=== PATIENT | male | born 1950 | race Caucasian/White ===

== ENCOUNTER 2016-10-16 09:37 | Inpatient (IN) | payer OTHER ==
[~2016-10-16] VITALS: Ht 182.9 cm; Wt 138.4 kg
[~2016-10-16 09:37] MED LIST: BUDE3CAP5 PO; CENTTAB9 PO; LISI10TA PO; REMICADE IV; VARE1 PO; VITA10002 PO
[2016-10-17] VITALS (9 sets, daily range): BP systolic 118–129; BP diastolic 58–82; PULSE 84–98; RESP 16–18; TEMP 97.5–98.4; O2SAT 94–99
[2016-10-17] MEDS ORDERED: DULE100A INH (11:23)
[2016-10-17] MEDS ORDERED: [UNRECOGNIZED DRUG - CODE] PO (11:23)
[2016-10-17] MEDS ORDERED: VEDO1INJ IV (11:23)
[2016-10-17] MEDS ORDERED: CARV6.252 PO (11:23)
[2016-10-17] MEDS ORDERED: METF500T PO (11:23)
[2016-10-17] MEDS ORDERED: LISI-515 PO (11:23)
[2016-10-17] MEDS ORDERED: FURO40TA PO (11:23)
[2016-10-17] MEDS ORDERED: VENTAER INH (11:23)
[2016-10-17] MEDS ORDERED: ROSU20 PO (11:23)
[2016-10-17] MEDS ORDERED: FENO160T PO (11:23)
[2016-10-17] MEDS ORDERED: LATA0.002 EACH EYE (11:23)
[2016-10-17] MEDS ORDERED: ASPI1TAB69 PO (11:23)
[2016-10-17] MEDS ORDERED: CHOL5000 PO (11:23)
[2016-10-17] MEDS: MILRINONE 20 MG/NS 100 ML (0.375 mcg/kg/min) IV SCH ×4 (14:10→20:06)
[2016-10-17 14:30] LABS: AUTOMATED NEUTROPHIL # 5.5 TH/MM3 (1.8-7.7); BASOPHIL % 0.3 % (0.0-2.0); EOSINOPHIL # 0.1 TH/MM3 (0-0.4); HEMATOCRIT 44.7 % (39.0-51.0); HEMO FLAGS DIFF FINAL; LYMPH % 21.2 % (9.0-44.0); LYMPHOCYTE # 1.7 TH/MM3 (1.0-4.8); MEAN CELL VOLUME 85.9 FL (80.0-100.0); MEAN CORPUSCULAR HEMOGLOBIN 28.5 PG (27.0-34.0); MEAN CORPUSCULAR HGB CONC 33.2 % (32.0-36.0); MONO % 9.4 % (0.0-8.0); NEUT % 68.1 % (16.0-70.0); PLATELET COUNT 218 TH/MM3 (150-450); RED CELL DISTRIBUTION WIDTH 16.5 % (11.6-17.2); WHITE BLOOD COUNT 8.1 TH/MM3 (4.0-11.0)
[2016-10-17 14:34] LABS: APTT (PATIENT) 29.6 SEC (24.3-30.1); INTERNATIONAL NORMALIZED RATIO 1.2 RATIO
[2016-10-17 15:03] LABS: ALT (GPT) 19 U/L (12-78); ANION GAP 8 MEQ/L (5-15); AST (GOT) 14 U/L (15-37); BICARBONATE 30.5 MEQ/L (21.0-32.0); BLOOD UREA NITROGEN 21 MG/DL (7-18); CHLORIDE 105 MEQ/L (98-107); GLOMERULAR FILTRATION RATE 115 ML/MIN (>89); POTASSIUM 3.9 MEQ/L (3.5-5.1); SODIUM (NA) 143 MEQ/L (136-145)
[2016-10-17 15:05] LABS: ALKALINE PHOSPHATASE 72 U/L (45-117); TOTAL BILIRUBIN ADULT 0.7 MG/DL (0.2-1.0)
[2016-10-17] MEDS ORDERED: MIDAZOLAM HCL 5 MG/ML VIAL (1 ML) ONE (17:47)
[2016-10-17] MEDS ORDERED: FUROSEMIDE 40 MG/4 ML VIAL IV PUSH SCH (20:15)
--- NOTE | 2016-10-17 20:20 | PD.CONS ---
[facility] Service Critical Care Medicine Consult Requested By Dr. Espinoza Reason for Consult hemodynamic optimization Primary Care Physician Norman Sheikh MD History of Present Illness This is a 66-year-old gentleman with a history of ischemic cardiomyopathy, EF 25 %, [place] Heart Association class III heart failure who presents as a direct admit from home for preoperative optimization of heart failure. I spoke with Dr. Espinoza and the patient's had progressive dyspneic symptoms of heart failure for a few weeks. The plan will be to place an AICD, but the patient will need to be medically optimized and not in decompensated heart failure for this procedure. I spoke with the patient, and concerning symptoms, he used to be able to walk to the meat department in the back of the grocery store with out getting dyspneic, but now needs to use a motorized scooter to get around the grocery store. He can only walk maybe 25 feet before getting dyspneic. He wears oxygen at home continuously. He denies having any new chest pain. He can lie flat, but only for a few minutes. I discussed with Dr. Espinoza and his most recent echo at the beginning of this month showed an EF of 25%, normal right ventricular function, mild to moderate mitral regurgitation, mild-to- moderate tricuspid regurgitation, biatrial enlargement. Critical care medicine is consulted to evaluate and manage his hemodynamic optimization. Review of Systems Constitutional: COMPLAINS OF: Weight gain, DENIES: Diaphoretic episodes, Fatigue, Fever, Weight loss, Chills, Dizziness Endocrine: DENIES: Heat/cold intolerance Respiratory: DENIES: Wheezing, Hemoptysis, Sputum production, Shortness of breath Cardiovascular: COMPLAINS OF: Orthopnea, DENIES: Chest pain, Palpitations, Syncope, Dyspnea on Exertion, PND, Lower Extremity Edema Gastrointestinal: DENIES: Abdominal pain, Constipation, Diarrhea, Nausea, Vomiting Genitourinary: DENIES: Urinary frequency, Urinary incontinence Past Family Social History Allergies: Coded Allergies: Aspirin (Verified Allergy, Severe, RASHES , 08/10/08) Remicade (Verified Allergy, Severe, Anaphylaxis, 08/10/08) Past Medical History Hypertension Systolic heart failure Ischemic cardiomyopathy Crohn's disease Past Surgical History Prior stents placed Small bowel resection for Crohn's disease Reported Medications Lasix Carvedilol Lisinopril Active Ordered Medications See MAR Family History Reviewed with the patient and found to be noncontributory to his acute illness Social History Denies tobacco, EtOH, drugs of abuse Physical Exam Vital Signs Vital Signs Date Time Temp Pulse Resp B/P Pulse Ox O2 Delivery O2 Flow Rate FiO2 10/17/16 17:04 98 Nasal Cannula 2.00 10/17/16 15:21 98.4 85 18 129/82 98 10/17/16 15:00 85 10/17/16 14:00 95 Nasal Cannula 2.00 10/17/16 12:00 98.0 84 18 124/58 99 10/17/16 11:00 99 Nasal Cannula 2.00 10/17/16 11:00 84 10/17/16 10:30 97.8 84 18 128/60 99 10/17/16 10:30 99 Nasal Cannula 2.00 Physical Exam GENERAL: Middle-aged male, sitting in bed. HEENT: Pupils equal, round and reactive. Normal cephalic. Atraumatic. Mucous membranes are moist NECK: Obese neck, unable to assess JVD. Trachea midline. CHEST: Equal chest rise. CARDIOVASCULAR: Normal rate, regular rhythm. Sinus by telemetry ABDOMEN: Obese, soft, nontender, nondistended. No guarding. MUSCULOSKELETAL: 2+ peripheral edema. Distal pulses 2+. Chronic nonhealing wound over the right lower extremity, this is without purulent drainage NEUROLOGICAL: RASS 0. GCS 15. CAM -. Follows commands all 4 extremity's. Laboratory Laboratory Tests Test 10/17/16 13:52 White Blood Count 8.1 Red Blood Count 5.20 Hemoglobin 14.8 Hematocrit 44.7 Mean Corpuscular Volume 85.9 Mean Corpuscular Hemoglobin 28.5 Mean Corpuscular Hemoglobin 33.2 Concent Red Cell Distribution Width 16.5 Platelet Count 218 Mean Platelet Volume 8.4 Neutrophils (%) (Auto) 68.1 Lymphocytes (%) (Auto) 21.2 Monocytes (%) (Auto) 9.4 Eosinophils (%) (Auto) 1.0 Basophils (%) (Auto) 0.3 Neutrophils # (Auto) 5.5 Lymphocytes # (Auto) 1.7 Monocytes # (Auto) 0.8 Eosinophils # (Auto) 0.1 Basophils # (Auto) 0.0 CBC Comment DIFF FINAL Differential Comment Prothrombin Time 13.0 Prothromb Time International 1.2 Ratio Activated Partial 29.6 Thromboplast Time Sodium Level 143 Potassium Level 3.9 Chloride Level 105 Carbon Dioxide Level 30.5 Anion Gap 8 Blood Urea Nitrogen 21 Creatinine 0.69 Estimat Glomerular Filtration 115 Rate Random Glucose 102 Calcium Level 8.9 Total Bilirubin 0.7 Aspartate Amino Transf 14 (AST/SGOT) Alanine Aminotransferase 19 (ALT/SGPT) Alkaline Phosphatase 72 Total Protein 7.0 Albumin 3.2 Result Diagram: 10/17/16 1352 10/17/16 1352 Assessment and Plan Assessment and Plan Assessment: This is a 66-year-old male with ischemic cardiomyopathy, EF of 25%, in subacute decompensated systolic heart failure. I agree that he needs medical optimization prior to any elective procedure. Certainly given his progressive [place] Heart Association symptoms, he appears to be trending towards cardiogenic shock. I have spoken with Dr. Espinoza and our plan is to place pulmonary artery catheter and start inotropic therapy with milrinone and aggressive diuresis to medically optimize him prior to elective AICD placement. I have also talked with the patient and consented him for RHC, aggressive diuresis, and medical optimization. 1. Decompensated Left Ventricular Systolic Heart Failure -- milrinone 0.375 mcg/kg/min -- place pulmonary artery catheter -- trend cardiac output/PA/CVP q4h -- lasix 80mg iv q8h -- BMP, Mg q8h and aggressive electrolyte replacement -- goal net -2L/24h. 2. Hypertension -- continue home lisinopril, carvedilol 3. Coronary Artery Disease -- continue home ASA Heart healthy diet SCDs SQH This patient remains critically ill with one or more organ systems which are or may become a threat to life. I have spent in excess of 51 minutes discontinuously in the care and management of this patient. This time is exclusive of procedures, and includes, but is not limited to, evaluation of the patient, review of the medical record, discussions with family, consultants, nursing staff, or respiratory therapy, and documentation in the medical record. Code Status Full Code Discussed Condition With Nestor Duran MD October 17, 2016 20:20
--- NOTE | 2016-10-17 20:22 | PD.PROCEDR ---
Procedure Note Procedure Central Line Procedure Note Right IJ 8.5 Mongolian Cordis introducer sheath Diagnosis: Ischemic cardiomyopathy with decompensated left ventricular systolic heart failure Indications: Need for central pressure monitoring and medical optimization of Decompensated heart failure Consent: Written consent was obtained from the patient Anesthesia: 1% lidocaine locally, Versed 1 mg IV Description of the Procedure: The patient was placed in the supine, mild- Trendelenburg position. The area was prepped and draped sterilely. A 19g needle was inserted under negative pressure aspiration and dark venous blood was obtained. A guidewire was inserted easily without resistance. A small incision was made using a #11 blade. Using a modified Seldinger technique, the dilator and 8.5 Mongolian, 10 cm catheter were advanced over the guidewire without resistance. All ports were aspirated and flushed, and had brisk blood return. The line was secured at the skin using 2-0 silk interrupted sutures. A Biopatch and Transparent sterile dressing were applied. There were no immediate complications noted. There was minimal EBL. The patient tolerated the procedure well. Ultrasound Guidance: Ultrasound guidance was used to identify the right internal jugular vein. The vascular anatomy was normal. The vessel was cannulated under direct, real-time ultrasound visualization. After placement of the guidewire, confirmation of the guidewire in the lumen of the vessel was made using ultrasound visualization, before dilation of the tract. A Chest x-ray has been ordered. I personally performed the procedure. Nestor Poe MD October 17, 2016 20:21
--- NOTE | 2016-10-17 20:24 | PD.PROCEDR ---
Procedure Note Procedure Pulmonary Artery Catheter Procedure Note Right IJ pulmonary artery catheter Diagnosis: Decompensated left ventricular systolic heart failure Indications: Need for medical optimization of decompensated left ventricular systolic heart failure, need for accurate thermodilution cardiac output Consent: Written consent was obtained from the patient Anesthesia: Versed 1 mg IV Description of the Procedure: The patient was placed in the supine, mild-Reverse -Trendelenburg position. The area was prepped and draped sterilely. A 6 Fr pulmonary artery catheter was flushed, and all ports were checked, including PA , CVP, infusion port. The balloon was tested and inflated and deflated easily. Through an existing introducer sheath, the catheter was inserted to a depth of 20 cm and the balloon was inflated without resistance. The PA catheter was advanced under continuous waveform hemodynamic monitoring and appropriate RA, RV , PA, and PCWP waveforms were achieved. The balloon was deflated. The line was secured to the introducer sheath using a sterile cover. There were no immediate complications noted. There was minimal EBL. The patient tolerated the procedure well. PA catheter secured at: 65 cm. Hemodynamic Data: RAP: 17 mmHg RV: 63/8 (27) mmHg PAP: 56/23 (30) mmHg PCWP: 20 mmHg achieved at 67 cm Mixed Venous SvO2: 59 % Cardiac Output: 4.1 L/min Cardiac Index: 1.9 A Chest x-ray has been ordered. I personally performed the procedure. Nestor Poe MD October 17, 2016 20:24
[2016-10-17] MEDS ORDERED: MAGNESIUM SULFATE INJ 2 GM in SODIUM CHLORIDE 0.9% INJ 96 ML IV PRN (20:30)
[2016-10-17] MEDS ORDERED: MAGNESIUM SULFATE INJ 4 GM in SODIUM CHLORIDE 0.9% INJ 92 ML IV PRN (20:30)
[2016-10-17] MEDS ORDERED: POTASSIUM CHLOR 20 MEQ PREMIX 100 ML IV PRN ×2 (20:30)
[2016-10-17] MEDS ORDERED: MAGNESIUM OXIDE 400 MG TAB PO PRN (20:30)
[2016-10-17] MEDS ORDERED: POTASSIUM PHOSPHATE MONOBASIC 500 MG TAB PO/TUBE PRN (20:30)
[2016-10-17] MEDS ORDERED: POTASSIUM PHOSPHATE MONOBASIC 500 MG TAB PO PRN (20:30)
[2016-10-17] MEDS ORDERED: SODIUM PHOSPHATE INJ 30 MMOL in SODIUM CHLOR 0.9% 250 ML INJ 240 ML IV PRN (20:30)
[2016-10-17] MEDS ORDERED: POTASSIUM CHLOR 40 MEQ PREMIX 100 ML IV PRN ×2 (20:30)
--- NOTE | 2016-10-17 20:49 | RADRPT ---
EXAM DATE/TIME: 10/17/2016 20:16 [facility] COMPARISON: No previous studies available for comparison. INDICATIONS : Central line placement. MEDICAL HISTORY : Hypertension. SURGICAL HISTORY : None. ENCOUNTER: Initial ACUITY: 1 day PAIN SCORE: 0/10 LOCATION: Bilateral chest FINDINGS: 2 AP supine portable views of the chest were obtained and demonstrate a right internal jugular [place]-G anz catheter with the tip in the right pulmonary artery. There is no evidence of a pneumothorax on th is supine study. There is abnormal opacity at the left lung base with blunting the costophrenic angle and fluid extending along the lower lateral chest wall. The heart size is at the upper limits of nor mal. There are overlying electrocardiogram leads. CONCLUSION: 1. Right internal jugular [place]-David catheter with no pneumothorax. 2. Abnormal opacity at the left lung base with left effusion. Campbell Brooks MD on October 17, 2016 at 20:46 Board Certified Radiologist. This report was verified electronically.
[2016-10-17] MEDS: FUROSEMIDE 40 MG/4 ML VIAL IV PUSH SCH (23:56)
[2016-10-17] MEDS: BUDESONIDE-FORMOTEROL 160/4.5 MCG INHALER INH SCH (23:57)
[2016-10-17] MEDS: CARVEDILOL 6.25 MG TAB PO SCH (23:57)
[2016-10-17] MEDS: LATANOPROST 0.005% OPHT SOLN 2.5 ML BTL EACH EYE SCH (23:57)
[2016-10-18] VITALS (9 sets, daily range): BP systolic 98–127; BP diastolic 53–76; PULSE 93–108; RESP 16–28; TEMP 97.7–99.1; O2SAT 91–94
[2016-10-18] MEDS: MILRINONE 20 MG/NS 100 ML (0.375 mcg/kg/min) IV SCH ×8 (01:22→20:30)
[2016-10-18 04:53] LABS: BICARBONATE 31.9 MEQ/L (21.0-32.0); MAGNESIUM 1.9 MG/DL (1.5-2.5); POTASSIUM 3.9 MEQ/L (3.5-5.1)
[2016-10-18] MEDS ORDERED: POTASSIUM CHLORIDE 20 MEQ CONTROLLED RELEASE TAB PO ONE (06:30)
[2016-10-18] MEDS: FUROSEMIDE 40 MG/4 ML VIAL IV PUSH SCH ×3 (06:37→21:19)
[2016-10-18] MEDS ORDERED: FUROSEMIDE 40 MG TAB PO SCH (09:00)
[2016-10-18] MEDS: ASPIRIN EC 81 MG TABEC PO SCH (09:00)
[2016-10-18] MEDS: ATORVASTATIN 40 MG TAB PO SCH (09:35)
[2016-10-18] MEDS: metFORMIN HCL 500 MG TAB PO SCH (09:35)
[2016-10-18] MEDS: BUDESONIDE-FORMOTEROL 160/4.5 MCG INHALER INH SCH ×2 (09:35→21:23)
[2016-10-18] MEDS: CHOLECALCIFEROL (VIT D3) 5000 UNIT CAP PO SCH (09:35)
[2016-10-18] MEDS: LISINOPRIL 20 MG TAB PO SCH (09:36)
[2016-10-18] MEDS: CYANOCOBALAMIN 1,000 MCG TAB PO SCH (09:36)
[2016-10-18] MEDS: CARVEDILOL 6.25 MG TAB PO SCH ×2 (09:36→21:22)
[2016-10-18] MEDS: FENOFIBRATE 145 MG TAB PO SCH (09:36)
[2016-10-18] MEDS: ALBUTEROL SULFATE 90 MCG/ACT HFA 18 GM INHALER INH PRN ×2 (11:26→21:22)
[2016-10-18 14:19] LABS: BICARBONATE 33.8 MEQ/L (21.0-32.0); MAGNESIUM 1.8 MG/DL (1.5-2.5); POTASSIUM 3.7 MEQ/L (3.5-5.1)
--- NOTE | 2016-10-18 16:55 | HHI.CCPN ---
Subjective Remarks/Hospital Course Hospital Course: This is a 66-year-old gentleman with a history of ischemic cardiomyopathy, EF 25 %, [place] Heart Association class III heart failure who presents as a direct admit from home for preoperative optimization of heart failure. I spoke with Dr. Espinoza and the patient's had progressive dyspneic symptoms of heart failure for a few weeks. The plan will be to place an AICD, but the patient will need to be medically optimized and not in decompensated heart failure for this procedure. I spoke with the patient, and concerning symptoms, he used to be able to walk to the meat department in the back of the grocery store with out getting dyspneic, but now needs to use a motorized scooter to get around the grocery store. He can only walk maybe 25 feet before getting dyspneic. He wears oxygen at home continuously. He denies having any new chest pain. He can lie flat, but only for a few minutes. I discussed with Dr. Espinoza and his most recent echo at the beginning of this month showed an EF of 25%, normal right ventricular function, mild to moderate mitral regurgitation, mild-to- moderate tricuspid regurgitation, biatrial enlargement. Critical care medicine is consulted to evaluate and manage his hemodynamic optimization. Subjective: 10/18: doing well. >3L uop overnight. denies complaints. RHC numbers today: HR 99 , RAP 7, PAP 49/13 (29), PCWP 21, art 123/76 (91). CO 6.5 LPM, CI 2.5 SVR 1028, SV 66 Objective Vital Signs Date Time Temp Pulse Resp B/P Pulse Ox O2 Delivery O2 Flow Rate FiO2 10/18/16 15:00 96 106/60 10/18/16 15:00 93 Nasal Cannula 3.00 10/18/16 15:00 98.3 28 Intake and Output 10/17/16 10/17/16 10/18/16 08:00 16:00 00:00 Intake Total 100 ml Output Total 350 ml Balance -250 ml Result Diagram: 10/17/16 1352 10/18/16 1335 Objective Remarks GENERAL: Middle-aged male, sitting in bed. HEENT: Pupils equal, round and reactive. Normal cephalic. Atraumatic. Mucous membranes are moist NECK: Obese neck, unable to assess JVD. Trachea midline. Right IJ cordis with PAC, dressing intact. CHEST: Equal chest rise. CARDIOVASCULAR: Normal rate, regular rhythm. Sinus by telemetry ABDOMEN: Obese, soft, nontender, nondistended. No guarding. MUSCULOSKELETAL: 2+ peripheral edema. Distal pulses 2+. Chronic nonhealing wound over the right lower extremity, this is without purulent drainage NEUROLOGICAL: RASS 0. GCS 15. CAM -. Follows commands all 4 extremity's. A/P Assessment and Plan Assessment: This is a 66-year-old male with ischemic cardiomyopathy, EF of 25%, in subacute decompensated systolic heart failure. Improving and diuresing appropriately. will continue with aggressive diuresis and inotropic support. 1. Decompensated Left Ventricular Systolic Heart Failure -- milrinone 0.375 mcg/kg/min -- continue PAC today. -- trend cardiac output/PA/CVP q4h -- lasix 80mg iv q8h -- BMP, Mg q8h and aggressive electrolyte replacement -- goal net -2-3L/24h. 2. Hypertension -- continue home lisinopril, carvedilol 3. Coronary Artery Disease -- continue home ASA Heart healthy diet SCDs [facility] Nestor Poe MD October 18, 2016 16:55
[2016-10-18] MEDS ORDERED: POTASSIUM CHLORIDE 25 MEQ EFFERVESCENT TAB PO ONE (17:00)
[2016-10-18] MEDS: LATANOPROST 0.005% OPHT SOLN 2.5 ML BTL EACH EYE SCH (21:22)
[2016-10-19] VITALS (10 sets, daily range): BP systolic 88–109; BP diastolic 48–65; PULSE 83–96; RESP 16–28; TEMP 97.4–98.3; O2SAT 83–96
[2016-10-19] MEDS: MILRINONE 20 MG/NS 100 ML (0.375 mcg/kg/min) IV SCH ×6 (02:26→14:54)
[2016-10-19 05:38] LABS: BICARBONATE 31.9 MEQ/L (21.0-32.0); MAGNESIUM 1.9 MG/DL (1.5-2.5); POTASSIUM 3.7 MEQ/L (3.5-5.1)
[2016-10-19] MEDS ORDERED: POTASSIUM CHLORIDE 25 MEQ EFFERVESCENT TAB PO ONE ×2 (06:15→20:15)
[2016-10-19] MEDS: FUROSEMIDE 40 MG/4 ML VIAL IV PUSH SCH ×3 (06:24→21:43)
[2016-10-19] MEDS: MAGNESIUM SULFATE 1 GM PREMIX 100 ML IV SCH ×2 (06:25→08:01)
[2016-10-19] MEDS: ASPIRIN EC 81 MG TABEC PO SCH (09:00)
[2016-10-19] MEDS: ATORVASTATIN 40 MG TAB PO SCH (09:25)
[2016-10-19] MEDS: metFORMIN HCL 500 MG TAB PO SCH (09:25)
[2016-10-19] MEDS: CYANOCOBALAMIN 1,000 MCG TAB PO SCH (09:25)
[2016-10-19] MEDS: FENOFIBRATE 145 MG TAB PO SCH (09:25)
[2016-10-19] MEDS: LISINOPRIL 20 MG TAB PO SCH (09:26)
[2016-10-19] MEDS: CHOLECALCIFEROL (VIT D3) 5000 UNIT CAP PO SCH (09:26)
[2016-10-19] MEDS: BUDESONIDE-FORMOTEROL 160/4.5 MCG INHALER INH SCH ×2 (09:26→21:42)
[2016-10-19] MEDS: CARVEDILOL 6.25 MG TAB PO SCH ×2 (09:26→21:43)
[2016-10-19] MEDS: ACETAMINOPHEN 325 MG TAB PO PRN (09:31)
[2016-10-19 13:18] LABS: BICARBONATE 30.1 MEQ/L (21.0-32.0); MAGNESIUM 2.4 MG/DL (1.5-2.5); POTASSIUM 3.8 MEQ/L (3.5-5.1)
--- NOTE | 2016-10-19 13:18 | HHI.CCPN ---
Subjective Remarks/Hospital Course Hospital Course: This is a 66-year-old gentleman with a history of ischemic cardiomyopathy, EF 25 %, [place] Heart Association class III heart failure who presents as a direct admit from home for preoperative optimization of heart failure. I spoke with Dr. Espinoza and the patient's had progressive dyspneic symptoms of heart failure for a few weeks. The plan will be to place an AICD, but the patient will need to be medically optimized and not in decompensated heart failure for this procedure. I spoke with the patient, and concerning symptoms, he used to be able to walk to the meat department in the back of the grocery store with out getting dyspneic, but now needs to use a motorized scooter to get around the grocery store. He can only walk maybe 25 feet before getting dyspneic. He wears oxygen at home continuously. He denies having any new chest pain. He can lie flat, but only for a few minutes. I discussed with Dr. Espinoza and his most recent echo at the beginning of this month showed an EF of 25%, normal right ventricular function, mild to moderate mitral regurgitation, mild-to- moderate tricuspid regurgitation, biatrial enlargement. Critical care medicine is consulted to evaluate and manage his hemodynamic optimization. Subjective: 10/18: doing well. >3L uop overnight. denies complaints. RHC numbers today: HR 99 , RAP 7, PAP 49/13 (29), PCWP 21, art 123/76 (91). CO 6.5 LPM, CI 2.5 SVR 1028, SV 66 10/19: uop > 5L/24h. doing well. o2 down to 3L NC from 5L. RHC numbers today: HR 87, RAP 7, PAP 36/15 (25), PCWP 16, art 88/54 (65). CO 6.2 LPM, CI 2.4, SVR 744 , SV 72 mL Objective Vital Signs Date Time Temp Pulse Resp B/P Pulse Ox O2 Delivery O2 Flow Rate FiO2 10/19/16 12:20 86 88/54 10/19/16 11:00 93 Nasal Cannula 3.00 10/19/16 11:00 97.4 24 10/19/16 03:00 91 Intake and Output 5/24/17 5/24/17 5/25/17 08:00 16:00 00:00 Intake Total 392 ml 1233 ml Output Total 650 ml 4275 ml Balance -258 ml -3042 ml Result Diagram: 10/17/16 1352 10/19/16 0400 Objective Remarks GENERAL: Middle-aged male, sitting in bed. HEENT: Pupils equal, round and reactive. Normal cephalic. Atraumatic. Mucous membranes are moist NECK: Obese neck, unable to assess JVD. Trachea midline. Right IJ cordis with PAC, dressing intact. CHEST: Equal chest rise. CARDIOVASCULAR: Normal rate, regular rhythm. Sinus by telemetry ABDOMEN: Obese, soft, nontender, nondistended. No guarding. MUSCULOSKELETAL: 2+ peripheral edema. Distal pulses 2+. Chronic nonhealing wound over the right lower extremity, this is without purulent drainage NEUROLOGICAL: RASS 0. GCS 15. CAM -. Follows commands all 4 extremity's. A/P Assessment and Plan Assessment: This is a 66-year-old male with ischemic cardiomyopathy, EF of 25%, in subacute decompensated systolic heart failure. Improving and diuresing appropriately. will continue with aggressive diuresis, weaning inotropic support. I have talked with Dr. Espinoza and will plan on AICD placement tomorrow. 1. Decompensated Left Ventricular Systolic Heart Failure -- milrinone 0.25 mcg/kg/min. could consider weaning this off by tomorrow morning if he continues on his appropriate course. -- continue PAC today. -- trend cardiac output/PA/CVP q4h -- lasix 80mg iv q8h -- BMP, Mg q8h and aggressive electrolyte replacement -- goal net -2-3L/24h. 2. Hypertension -- continue home lisinopril, carvedilol. -- borderline blood pressures today, may need to hold one or both anti- hypertensives in the setting of borderline blood pressures. 3. Coronary Artery Disease -- continue home ASA Heart healthy diet SCDs [facility] Nestor Poe MD October 19, 2016 13:18
--- NOTE | 2016-10-19 16:10 | HHI.PR ---
Subjective Remarks Feeling better Objective Vital Signs Date Time Temp Pulse Resp B/P Pulse Ox O2 Delivery O2 Flow Rate FiO2 10/19/16 12:20 86 88/54 10/19/16 11:00 86 10/19/16 11:00 93 Nasal Cannula 3.00 10/19/16 11:00 97.4 86 24 88/54 93 10/19/16 10:31 18 10/19/16 07:44 94 Nasal Cannula 3.00 10/19/16 07:00 89 100/48 10/19/16 07:00 92 Nasal Cannula 3.00 10/19/16 07:00 89 10/19/16 07:00 97.9 89 28 100/48 94 10/19/16 03:00 90 10/19/16 03:00 93 Nasal Cannula 4.00 91 10/19/16 03:00 96 109/65 10/19/16 03:00 97.7 90 16 104/64 93 10/18/16 23:00 93 10/18/16 23:00 98.2 93 16 109/65 91 10/18/16 23:00 94 Nasal Cannula 4.00 91 10/18/16 23:00 96 109/65 10/18/16 21:20 94 21 10/18/16 19:00 99.1 95 18 98/65 94 10/18/16 19:00 95 10/18/16 19:00 96 98/65 10/18/16 19:00 94 Nasal Cannula 3.00 I/O 10/18/16 10/18/16 10/18/16 10/19/16 10/19/16 10/19/16 07:00 15:00 23:00 07:00 15:00 23:00 Intake Total 392 ml 1233 ml 408 ml Output Total 650 ml 4275 ml 1275 ml Balance -258 ml -3042 ml -867 ml Intake Oral 220 ml 960 ml 300 ml IV Total 172 ml 273 ml 108 ml Output Urine Total 650 ml 4275 ml 1275 ml Stool Total 0 ml # Bowel Movements 1 Result Diagram: 10/17/16 1352 10/19/16 1230 Imaging Alert, fully oriented Lungs: ventilated Heart: S1, S2 regular, no gallop Abdomen: soft, no mass Ext: No edema Last Impressions Chest X-Ray 10/17/16 0000 Signed Impressions: Service Date/Time: Monday, October 17, 2016 20:16 - CONCLUSION: 1. Right internal jugular [place]-David catheter with no pneumothorax. 2. Abnormal opacity at the left lung base with left effusion. Campbell Brooks MD Current Medications Medications (Trade) Dose Ordered Sig/Adela Route Start Time Stop Time Status Last Admin (Ventolin Hfa Inh) 1 puff Q4H PRN INH 10/17/16 12:00 10/18/16 21:22 (Ecotrin Ec) 162 mg DAILY PO 10/18/16 09:00 (Coreg) 6.25 mg BID PO 10/17/16 21:00 10/19/16 09:26 (Vitamin D3) 5,000 units DAILY PO 10/18/16 09:00 10/19/16 09:26 (Vitamin B12) 500 mcg DAILY PO 10/18/16 09:00 10/19/16 09:25 (Xalatan 0.005% Opth Soln) 1 drop HS EACH EYE 10/17/16 21:00 10/18/16 21:22 (Prinivil) 20 mg DAILY PO 10/18/16 09:00 10/19/16 09:26 (Glucophage) 500 mg DAILY PO 10/18/16 09:00 10/19/16 09:25 (Tricor) 145 mg DAILY PO 10/18/16 09:00 10/19/16 09:25 (Symbicort 160-4.5 Inh) 2 puff BID INH 10/17/16 21:00 10/19/16 09:26 Atorvastatin Calcium 40 mg 40 mg DAILY PO 10/18/16 09:00 10/19/16 09:25 (Primacor Inj/NS Inj) 100 ml @ 16.43 mls/ hr Q6H6M IV 10/17/16 14:00 10/19/16 14:54 (Lasix Inj) 80 mg Q8HR IV PUSH 10/17/16 20:15 10/19/16 15:55 Magnesium Oxide 800 mg 800 mg UNSCH PRN PO 10/17/16 20:30 Magnesium Sulfate 4 gm/Sodium Chloride 100 ml @ 50 mls/hr UNSCH PRN IV 10/17/16 20:30 Magnesium Sulfate 2 gm/Sodium Chloride 100 ml @ 50 mls/hr UNSCH PRN IV 10/17/16 20:30 Potassium Chloride 100 ml @ 50 mls/hr Q2H PRN IV 10/17/16 20:30 Potassium Chloride 100 ml @ 50 mls/hr Q2H PRN IV 10/17/16 20:30 Potassium Chloride 100 ml @ 50 mls/hr Q2H PRN IV 10/17/16 20:30 (KCl 40 Meq Premix Inj) 100 ml @ 25 mls/hr UNSCH PRN IV 10/17/16 20:30 (K-Phos) 2,000 mg Q4H PRN PO 10/17/16 20:30 Potassium Phosphate 2000 mg 2,000 mg UNSCH PRN PO/TUBE 10/17/16 20:30 (Sodium Phosphate Inj/NS 250 ml Inj) 250 ml @ 42 mls/hr UNSCH PRN IV 10/17/16 20:30 (Tylenol) 650 mg Q6HR PRN PO 10/19/16 07:00 10/19/16 09:31 Assessment and Plan Problem List: (1) SOB (shortness of breath) Status: Acute Plan: Significantly improve (2) Heart failure, chronic, with acute decompensation Status: Acute Plan: Doing better. On milrinone Able to tolerate flat bed. Not on acute distress. Lisinopril will be DC. Entresto will be initiated tomorrow night EPS , BIV ICD tomorrow PM case discussed with patient Raeann Espinoza MD October 19, 2016 16:10
[2016-10-19] MEDS ORDERED: SACUBITRIL/VALSARTAN 24 MG-26 MG TAB PO SCH (21:00)
[2016-10-19] MEDS: ALBUTEROL SULFATE 90 MCG/ACT HFA 18 GM INHALER INH PRN (21:42)
[2016-10-19] MEDS: LATANOPROST 0.005% OPHT SOLN 2.5 ML BTL EACH EYE SCH (21:42)
[2016-10-19 22:51] LABS: BICARBONATE 30.2 MEQ/L (21.0-32.0); MAGNESIUM 2.1 MG/DL (1.5-2.5); POTASSIUM 3.5 MEQ/L (3.5-5.1)
[2016-10-20] VITALS (17 sets, daily range): BP systolic 88–120; BP diastolic 43–90; PULSE 76–91; RESP 14–20; TEMP 97.3–98.3; O2SAT 91–98
[2016-10-20 05:07] LABS: BICARBONATE 30.3 MEQ/L (21.0-32.0); MAGNESIUM 2.4 MG/DL (1.5-2.5); POTASSIUM 5.4 MEQ/L (3.5-5.1)
[2016-10-20] MEDS: FUROSEMIDE 40 MG/4 ML VIAL IV PUSH SCH ×2 (06:15→14:00)
[2016-10-20] MEDS: ATORVASTATIN 40 MG TAB PO SCH (09:00)
[2016-10-20] MEDS: FENOFIBRATE 145 MG TAB PO SCH (09:00)
[2016-10-20] MEDS: CHOLECALCIFEROL (VIT D3) 5000 UNIT CAP PO SCH (09:00)
[2016-10-20] MEDS: CYANOCOBALAMIN 1,000 MCG TAB PO SCH (09:00)
[2016-10-20] MEDS: metFORMIN HCL 500 MG TAB PO SCH (09:00)
[2016-10-20] MEDS ORDERED: SACUBITRIL/VALSARTAN 24 MG-26 MG TAB PO SCH (09:00)
[2016-10-20] MEDS: CARVEDILOL 6.25 MG TAB PO SCH (09:11)
[2016-10-20] MEDS: ASPIRIN EC 81 MG TABEC PO SCH (09:12)
[2016-10-20] MEDS: BUDESONIDE-FORMOTEROL 160/4.5 MCG INHALER INH SCH ×2 (09:16→21:51)
--- NOTE | 2016-10-20 14:18 | EKG ---
Date Performed: 10/19/2016 Time Performed: 17:48:46 PTAGE: 66 years EKG: Sinus rhythm Left bundle branch block Abnormal ECG NO PREVIOUS TRACING DOCTOR: Christian Monge Interpretating Date/Time 10/20/2016 14:17:05
[2016-10-20] MEDS ORDERED: KETAMINE HCL 500 MG/5 ML VIAL ONE (15:40)
[2016-10-20] MEDS ORDERED: VANCOMYCIN HCL 1000 MG VIAL ONE (15:47)
[2016-10-20] MEDS ORDERED: VANCOMYCIN 500 MG VIAL ONE ×2 (15:47→16:07)
[2016-10-20] MEDS ORDERED: LIDOCAINE HCL 2% 50 ML VIAL ONE (15:48)
[2016-10-20] MEDS ORDERED: ceFAZolin INJ 1,000 MG VIAL ONE (15:48)
[2016-10-20] MEDS ORDERED: BACITRACIN OINT 0.9 GM PKT TOP ONE (18:15)
[2016-10-20] MEDS ORDERED: METOCLOPRAMIDE HCL 10 MG/2 ML VIAL IV PRN (18:15)
[2016-10-20] MEDS ORDERED: ATROPINE SULFATE 1 MG/ML VIAL IV PRN (18:15)
[2016-10-20] MEDS ORDERED: LIDOCAINE HCL 1% 50 ML VIAL INFIL PRN (18:15)
[2016-10-20] MEDS ORDERED: ONDANSETRON HCL 4 MG/2 ML VIAL IV PRN (18:15)
[2016-10-20] MEDS ORDERED: SODIUM CHLOR 0.9% 250 ML INJ 250 ML IV PRN (18:15)
[2016-10-20] MEDS ORDERED: LORazepam 2 MG/ML VIAL IV PRN (18:15)
--- NOTE | 2016-10-20 18:25 | PD.CARD ---
BIV/ICD Implantation PROCEDURE DATE: October 20, 2016 NYHA Classification: Class III (Moderate) Prevention: Primary BIV/ICD IMPLANT PROCEDURE Biventricular pacer defibrillator implantation . INDICATION FOR PROCEDURE Mr. Humphreys is a 66-year-old male with congestive heart failure class III, cardiomyopathy, wide QRS, on optimal medical management. LIYAH inhibitor DC yesterday ash be able to initiate entresto, who undergo biventricular pacer defibrillator implantation. The risks, the nature and the benefit of the procedure were clearly stated to him. The risks include pneumothorax, cardiac perforation, stroke and even . He understood and agreed to proceed. PROCEDURE As written informed consent was obtained prior to electrophysiology study, the patient was kept on the table where he was prepped and draped in the usual sterile fashion. Conscious sedation was initiated and maintained throughout the procedure by the anesthesiologist. Once sedation was verified, the left infraclavicular area was anesthetized with 2% Xylocaine. Using modified Seldinger technique, the left subclavian vein was cannulated on three occasions and three guidewire were advanced. Then, using an 11 blade scalpel, a 3 cm incision was made over the existing generator. The incision was taken down to the fascial layer using Bovie cautery and blunt dissection. Into the inferomedial direction, a device pocket was dissected. Then the wires were dissected into pocket. A 2-0 Vicryl suture was placed around the wires to prevent back-bleeding. At this point, over the lateral wire, a 8-Mexican dilator and introducer were advanced. As the dilator and wire were removed, an active fixation right ventricular pacing sensing defibrillatory lead was advanced. After adequate pacing and sensing thresholds were obtained, the lead was secured in the pocket using # 2 Ethibond suture. Then, over the lateral wire, a 7-Mexican dilator and introducer was advanced. As the dilator and wire were removed, an active fixation right atrial pacing and sensing lead was advanced. After adequate pacing and sensing threshold obtained, the lead was secured into the pocket using # 2 Ethibond suture. Then, over the remaining wire, a 9-Mexican dilator and introducer were advanced. As the dilator and wire were removed, a CS cannulation sheath was advanced. Through the sheath a quadripolar steerable catheter was advanced. After multiple manipulations the coronary sinus was cannulated, and CS venography showed an adequate lateral branch. Using a Dragonfly List wire and a subselector, the lateral branch was cannulated and the lead was advanced over the wire. After adequate pacing and sensing thresholds were obtained, the peel-away introducer was removed and the cutter introducer was removed, and the lead was secured in the pocket using # 2 Ethibond suture. At that point, the pocket was copiously irrigated with antibiotic solution. The leads were connected to the generator and placed into pocket. Because of the patient's general condition and was so unstable during the procedure, I decided not to proceed with device testing. I did proceed with wound closure. The deep fascial layer was approximated using 2-0 Vicryl suture in a continuous fashion. The subcutaneous layer was approximated with 2-0 Vicryl suture in a continuous fashion. The subcuticular layer was approximated with 2-0 Vicryl suture in a continuous fashion. Dermabond adhesive was applied to the wound followed by a sterile pressure dressing. This was a very complex case. The patient was unstable during the procedure, but no complications reported. Blood loss was minimal. IMPLANTED HARDWARE The implanted biventricular pacer defibrillator is a Biotronik model 330464, serial number [id number]. The right atrial pacing and sensing lead is a Biotronik model number 940258, serial number [id number]. The right ventricle pacing sensing defibrillatory is a Biotronik model 692214, serial number [id number]. The left ventricular pacing sensing lead is a Medtronic model 4398-88, serial number [id number]. THRESHOLDS The right atrial pacing threshold in a bipolar mode was 0.5V @ 0.5ms. Lead impedance 636 ohms. The right ventricle pacing threshold in the bipolar mode was 0.3 volts at 0.5 milliseconds, lead impedance 695 ohms, R wave @ 24.2mv. The left ventricular pacing threshold in the bipolar mode was 0.4 volts at 0.5 milliseconds, lead impedance 610 ohms. SETTINGS The device was set in a DDD60, upper limit 120 beats per minute. LV first by 40 milliseconds. The defibrillatory portion was set for two zones. One zone for ventricular tachycardia between 160 and 240 beats per minute on the monitor ventricular tachycardia. The initial therapy consisted of one burst of ATP, one RAMP, 81%, 10 pause, 10millisecond decremental followed by 20 and 30 and 40 joules defibrillatory shock. The second zone is for ventricle fibrillation above 240, the first therapy at 30 and all subsequent shocks at 40 joules defibrillatory shock. CONCLUSIONS Successful biventricular pacer defibrillator implantation, that was a complex case. COMMENT AND RECOMMENDATION The patient will be transferred to the telemetry unit. He will be observed and when stable can be discharged home. Raeann Espinoza MD October 20, 2016 18:25
[2016-10-20] MEDS ORDERED: MIDAZOLAM HCL 2 MG/2 ML VIAL ONE (18:29)
--- NOTE | 2016-10-20 19:35 | MA ---
cc: CELIA CREWS M.D. DATE: 10/20/2016. PROCEDURE PERFORMED: 1. Electrophysiology study. 2. CS cannulation. INDICATIONS FOR THE PROCEDURE: Mr. Humphreys is a 66-year-old gentleman with congestive heart failure class III on optimal medical treatment, ejection fraction of 205 who will undergo electrophysiology study. The risks, the nature and the benefits of the procedure were clearly stated to him. The risks include pneumothorax, cardiac perforation, stroke and even . The patient understood and agreed to proceed. DESCRIPTION OF THE PROCEDURE IN DETAIL: After written informed consent was obtained, the patient was brought to the EP lab where he was prepped and draped in the usual sterile fashion. Conscious sedation was initiated and maintained throughout the procedure by the anesthesiologist. Once sedation had been verified, the right inguinal area was anesthetized with 2% Xylocaine. Using modified Seldinger technique, the right femoral vein was cannulated on four occasions and four guidewires were advanced. Over the wire, three 5 and a 6-New Zealander Hemaquet were advanced. Then under fluoroscopic guidance through the 5-New Zealander Hemaquet, a 4.5-New Zealander Revuze curved quadripolar electrophysiology catheter was advanced and placed along the His, the upper right atrium, the coronary sinus and right ventricular apex. Basic interval was measured. HV was prolonged around 84 milliseconds. Then atrial pacing protocol was performed. Atrial pacing protocol consisted of incremental atrial pacing as well as program stimulation with 110 cycle length and up to one extra stimuli delivered. No tachyarrhythmia was induced. Then ventricular pacing protocol was performed. There was VA conduction. Ventricular pacing protocol consisted of incremental ventricular pacing as well as program stimulation with 110 cycle length and up to three extra stimuli delivered. During ventricular pacing protocol, the patient's blood pressure dropped. I decided at this point not to continue ventricular pacing protocol. All catheters were removed. The patient is going to be kept on the table and a biventricular pacer-defibrillator will be implanted for sudden primary prevention and resynchronization therapy. No incident report. The patient tolerated the procedure. The blood loss was minimal. 1. ELECTROCARDIOGRAM: At baseline, the patient was in sinus. Post-procedure Electrocardiogram was unchanged. 2. BASIC INTERVAL: The basic cycle length was 780 milliseconds. AH at 82 and HV at 84 milliseconds. atrial pacing protocol, Wenckebach of the node was around 340 milliseconds. ERP of the node was 600 and 280 milliseconds. No tachyarrhythmia was induced. 3. VENTRICULAR PACING PROTOCOL: There was VA conduction. No tachyarrhythmia was induced. Ventricular pacing protocol was discontinued because of severe hypotension. CONCLUSIONS: Negative electrophysiology study for supraventricular tachyarrhythmia. COMMENTS AND RECOMMENDATIONS: The patient has congestive heart failure class III. He is on optimal medical treatment, and is high risk for sudden . At that point, a biventricular pacer-defibrillator will be implanted for sudden prevention and resynchronization therapy. MD BRIGETTE Paz/JAS /6:30 PM /7:18 PM
--- NOTE | 2016-10-20 20:31 | RADRPT ---
EXAM DATE/TIME: 10/20/2016 19:43 [facility] COMPARISON: CHEST SINGLE AP, October 17, 2016, 20:16. INDICATIONS : Post pacemaker insertion. MEDICAL HISTORY : None. SURGICAL HISTORY : Pacemaker. ENCOUNTER: Subsequent ACUITY: 2 days PAIN SCORE: 5/10 LOCATION: Bilateral chest FINDINGS: 2 portable frontal views of the chest show interval placement of a left-sided pacing device. The lead s terminate in the region of the right atrium and right ventricle respectively. No pneumothorax. The heart is enlarged. Pulmonary vascular engorgement seen. Small left effusion with left lower lobe infi ltrate. These are stable. CONCLUSION: 1. Left pacer in good position without pneumothorax. 2. Unchanged left pleural effusion and left lower lobe infiltrate. Juan Antonio Ruiz Jr., MD on October 20, 2016 at 20:25 Board Certified Radiologist. This report was verified electronically.
--- NOTE | 2016-10-20 20:33 | HHI.CCPN ---
Subjective Remarks/Hospital Course Hospital Course: This is a 66-year-old gentleman with a history of ischemic cardiomyopathy, EF 25 %, [place] Heart Association class III heart failure who presents as a direct admit from home for preoperative optimization of heart failure. I spoke with Dr. Espinoza and the patient's had progressive dyspneic symptoms of heart failure for a few weeks. The plan will be to place an AICD, but the patient will need to be medically optimized and not in decompensated heart failure for this procedure. I spoke with the patient, and concerning symptoms, he used to be able to walk to the meat department in the back of the grocery store with out getting dyspneic, but now needs to use a motorized scooter to get around the grocery store. He can only walk maybe 25 feet before getting dyspneic. He wears oxygen at home continuously. He denies having any new chest pain. He can lie flat, but only for a few minutes. I discussed with Dr. Espinoza and his most recent echo at the beginning of this month showed an EF of 25%, normal right ventricular function, mild to moderate mitral regurgitation, mild-to- moderate tricuspid regurgitation, biatrial enlargement. Critical care medicine is consulted to evaluate and manage his hemodynamic optimization. Subjective: 10/18: doing well. >3L uop overnight. denies complaints. RHC numbers today: HR 99 , RAP 7, PAP 49/13 (29), PCWP 21, art 123/76 (91). CO 6.5 LPM, CI 2.5 SVR 1028, SV 66 10/19: uop > 5L/24h. doing well. o2 down to 3L NC from 5L. RHC numbers today: HR 87, RAP 7, PAP 36/15 (25), PCWP 16, art 88/54 (65). CO 6.2 LPM, CI 2.4, SVR 744 , SV 72 mL 10/20: seen and examined at 06:30am. late note entry. net 3L negative/24h. Cr continues to improve. at dry weight. RHC numbers today: RAP 2, PAP 35/9 (22), PCWP 11, CO 5.8, CI 2.3. Dry Weight: 135.1 kg Objective Vital Signs Date Time Temp Pulse Resp B/P Pulse Ox O2 Delivery O2 Flow Rate FiO2 10/20/16 15:00 83 10/20/16 15:00 93 Nasal Cannula 4.00 10/20/16 15:00 98.3 20 91/60 10/19/16 03:00 91 Intake and Output 10/19/16 10/19/16 10/20/16 08:00 16:00 00:00 Intake Total 408 ml 842 ml Output Total 1275 ml 2925 ml Balance -867 ml -2083 ml Result Diagram: 10/17/16 1352 10/20/16 0405 Objective Remarks GENERAL: Middle-aged male, sitting in bed. HEENT: Pupils equal, round and reactive. Normal cephalic. Atraumatic. Mucous membranes are moist NECK: Obese neck, unable to assess JVD. Trachea midline. Right IJ cordis with PAC, dressing intact. CHEST: Equal chest rise. CARDIOVASCULAR: Normal rate, regular rhythm. Sinus by telemetry ABDOMEN: Obese, soft, nontender, nondistended. No guarding. MUSCULOSKELETAL: 1+ peripheral edema. Distal pulses 2+. Chronic nonhealing wound over the right lower extremity, this is without purulent drainage NEUROLOGICAL: RASS 0. GCS 15. CAM -. Follows commands all 4 extremity's. A/P Assessment and Plan Assessment: This is a 66-year-old male with ischemic cardiomyopathy, EF of 25%, in subacute decompensated systolic heart failure. Now improved and at dry weight. will switch to home maintenance diuresis. Plan for AICD placement today. 1. Left Ventricular Systolic Heart Failure -- optimized. at dry weight. off inotropic support. -- d/c PA catheter today. d/c CVL. -- Lasix 60mg po BID. -- goal euvolemia. -- daily BMP 2. Hypertension -- continue home carvedilol. -- start entresto 3. Coronary Artery Disease -- continue home ASA Heart healthy diet SCDs [facility] Critical Care Medicine will sign off. Please re-consult as needed. Nestor Poe MD October 20, 2016 20:33
[2016-10-20 21:24] LABS: BICARBONATE 28.4 MEQ/L (21.0-32.0); MAGNESIUM 2.1 MG/DL (1.5-2.5)
[2016-10-20] MEDS: SACUBITRIL/VALSARTAN 24 MG-26 MG TAB PO SCH (21:50)
[2016-10-20] MEDS: LATANOPROST 0.005% OPHT SOLN 2.5 ML BTL EACH EYE SCH (21:51)
[2016-10-20] MEDS: FUROSEMIDE 20 MG TAB PO SCH (21:51)
[2016-10-20] MEDS: CARVEDILOL 3.125 MG TAB PO SCH (21:51)
[2016-10-20] MEDS: ACETAMINOPHEN 325 MG TAB PO PRN (21:52)
[2016-10-20] MEDS: ceFAZolin 2 GM PREMIX 50 ML IV SCH (23:47)
[2016-10-21] VITALS (10 sets, daily range): BP systolic 85–104; BP diastolic 51–65; PULSE 81–93; RESP 18–20; TEMP 97.8–98.2; O2SAT 95–98
[2016-10-21] MEDS: ACETAMINOPHEN 325 MG TAB PO PRN (05:33)
[2016-10-21 07:40] LABS: BICARBONATE 25.5 MEQ/L (21.0-32.0); POTASSIUM 3.8 MEQ/L (3.5-5.1)
--- NOTE | 2016-10-21 08:42 | PD.CARD.PN ---
Subjective Subjective Remarks The patient has mild shortness of breath which is back at baseline but no other cardiac symptoms, GI distress or bleeding. Telemetry reveals sinus rhythm. Chart reviewed. Objective Medications Reviewed Vital Signs / I&O Vital Signs Date Time Temp Pulse Resp B/P Pulse Ox O2 Delivery O2 Flow Rate FiO2 10/21/16 08:00 89 10/21/16 07:00 93 10/21/16 07:00 98 Nasal Cannula 3.00 10/21/16 07:00 98.2 83 18 104/64 98 10/21/16 06:00 84 10/21/16 05:00 81 10/21/16 04:00 84 10/21/16 03:00 97.8 83 20 104/60 98 10/21/16 03:00 98 Nasal Cannula 3.00 10/21/16 03:00 81 10/21/16 02:00 86 10/21/16 02:00 82 85/58 96 10/21/16 01:00 81 92/51 97 10/21/16 01:00 81 10/21/16 00:00 83 97/65 95 10/21/16 00:00 83 10/20/16 23:00 85 10/20/16 23:00 98.1 87 16 92/62 96 10/20/16 23:00 96 Nasal Cannula 3.00 10/20/16 23:00 85 120/77 96 10/20/16 22:00 85 10/20/16 21:45 85 97/58 96 10/20/16 21:15 79 100/66 97 10/20/16 21:00 84 10/20/16 20:45 82 110/75 96 10/20/16 20:15 83 119/90 97 10/20/16 20:00 82 10/20/16 19:45 80 96/58 97 10/20/16 19:30 77 104/75 96 10/20/16 19:00 76 10/20/16 19:00 96 Nasal Cannula 3.00 10/20/16 19:00 97.3 81 20 97/51 97 10/20/16 19:00 78 96/64 98 10/20/16 18:46 77 95 10/20/16 15:00 83 10/20/16 15:00 93 Nasal Cannula 4.00 10/20/16 15:00 98.3 83 20 91/60 93 10/20/16 15:00 10/20/16 11:44 97.7 85 16 88/43 91 10/20/16 11:44 85 10/20/16 11:44 91 Nasal Cannula 4.00 10/20/16 11:44 I/O 10/20/16 10/20/16 10/20/16 10/21/16 10/21/16 10/21/16 07:00 15:00 23:00 07:00 15:00 23:00 Intake Total 362 ml 20 ml 1010 ml Output Total 1110 ml 1225 ml 725 ml Balance -748 ml -1205 ml 285 ml Intake Oral 240 ml 0 ml 960 ml IV Total 122 ml 20 ml 50 ml Output Urine Total 810 ml 1225 ml 725 ml Stool Total 300 ml # Bowel Movements 1 2 Physical Exam GENERAL: Well-nourished, well-developed patient in no apparent distress. SKIN: Warm and dry. NECK: JVD normal - less than or equal to 5 cm H20. CARDIOVASCULAR: Regular rate and rhythm without murmurs, gallops, or rubs. Pacer site dry. RESPIRATORY: Decreased breath sounds - equal bilaterally. No accessory muscle use. No wheezes, rales or rubs. PERIPHERY: No cyanosis, or edema. Laboratory Laboratory Tests Test 10/20/16 10/21/16 20:09 06:11 Sodium Level 138 MEQ/L 136 MEQ/L Potassium Level 4.0 MEQ/L 3.8 MEQ/L Chloride Level 101 MEQ/L 100 MEQ/L Carbon Dioxide Level 28.4 MEQ/L 25.5 MEQ/L Anion Gap 9 MEQ/L 11 MEQ/L Blood Urea Nitrogen 28 MG/DL 29 MG/DL Creatinine 0.84 MG/DL 0.78 MG/DL Estimat Glomerular Filtration 92 ML/MIN 100 ML/MIN Rate Random Glucose 133 MG/DL 121 MG/DL Calcium Level 8.7 MG/DL 8.7 MG/DL Magnesium Level 2.1 MG/DL Imaging Last 48 hours Impressions Chest X-Ray 10/20/16 0000 Signed Impressions: Service Date/Time: Thursday, October 20, 2016 19:43 - CONCLUSION: 1. Left pacer in good position without pneumothorax. 2. Unchanged left pleural effusion and left lower lobe infiltrate. Juan Antonio Ruiz Jr., MD Assessment and Plan Assessment and Plan Problems: Congestive heart failure with ischemic cardiomyopathy Biventricular pacemaker/defibrillator placement Hypertension Diabetes Hyperlipidemia Recommendations: Discharge home Pacer site care discussed. He will call our office early this week to make sure he has adequate follow-up with electrophysiology. Continue present medical regimen. I will leave renal and electrolyte management on new medication to . No heavy exertion Low-cholesterol/salt/diabetic diet All questions answered Tenzin Shah MD October 21, 2016 08:42
[2016-10-21] MEDS: ASPIRIN EC 81 MG TABEC PO SCH (08:54)
[2016-10-21] MEDS: ceFAZolin 2 GM PREMIX 50 ML IV SCH (08:54)
[2016-10-21] MEDS: ATORVASTATIN 40 MG TAB PO SCH (08:54)
[2016-10-21] MEDS: metFORMIN HCL 500 MG TAB PO SCH (08:54)
[2016-10-21] MEDS: CYANOCOBALAMIN 1,000 MCG TAB PO SCH (08:55)
[2016-10-21] MEDS: FUROSEMIDE 20 MG TAB PO SCH (08:55)
[2016-10-21] MEDS: CARVEDILOL 3.125 MG TAB PO SCH (08:55)
[2016-10-21] MEDS: SACUBITRIL/VALSARTAN 24 MG-26 MG TAB PO SCH (08:55)
[2016-10-21] MEDS: FENOFIBRATE 145 MG TAB PO SCH (08:55)
[2016-10-21] MEDS: BUDESONIDE-FORMOTEROL 160/4.5 MCG INHALER INH SCH (08:56)
[2016-10-21] MEDS: CHOLECALCIFEROL (VIT D3) 5000 UNIT CAP PO SCH (08:56)
[2016-10-21] MEDS ORDERED: CARV3.125 PO (09:01)
[2016-10-21] MEDS ORDERED: FURO20TA PO (09:01)
[2016-10-21] MEDS ORDERED: SACU1TAB PO (09:01)
--- NOTE | 2016-10-21 16:06 | EKG ---
Date Performed: 10/20/2016 Time Performed: 20:21:22 PTAGE: 66 years EKG: There appears to be Sinus rhythm with a rate of 85 Intraventricular conduction disturbance One PVC is present Since PREVIOUS TRACING 10/19/2016, QRS complex is somewhat altered and somewhat narrower. Coul d be due to pacemaker function altering the QRS; however, I cannot definitely see pacer spikes on thi s tracing. Clinical correlation is recommended. PREVIOUS TRACIN10/19/2016 17.48 DOCTOR: Thad Clayton Interpretating Date/Time 10/21/2016 16:04:25
--- NOTE | 2016-10-22 15:20 | EKG ---
Date Performed: 10/21/2016 Time Performed: 08:24:36 PTAGE: 66 years EKG: Sinus rhythm with PVC(s) Possible left atrial abnormality Cannot rule out anterior infarct - age undetermined Lef t ventricular hypertrophy Inferior/lateral ST-T changes are probably due to ventricular hypertrophy A bnormal ECG PREVIOUS TRACING : 10/20/2016 20.21 Since previous tracing, no significant change noted DOCTOR: Thad Clayton Interpretating Date/Time 10/22/2016 15:20:00
--- NOTE | 2016-10-24 15:50 | CATHPROC ---
Cerephex HIS Report Study Information Study Number Scheduled Start Study Start [id number] 10/20/2016 Oct 20 2016 4:47PM Referring Institution Facility Department 1 [facility] Counselor Physician and Clinical Staff Initial Raeann Francois Piece Cutter Clement Martínez,RT(R) TECH2 Other Anesthesia, SUPERVISOR TANK STORAGE Recorder Mateus Wallace,MINERVA Scrub Graham Mitchell,RT(R) Procedures Performed Procedure Lead Insertion Equipment Time Care Transition Mgr Description Size Mfg Part Number Used/Scraped [id number] 17:23 [employer] WIRE, ASAHI PROWATER 180CM 180CM Used *[id number] 17:35 [employer] WIRE, ASAHI PROWATER 180CM 180CM Used *[id number] DEFIBRILLATOR, ITREVIA 7 HF-T 17:59 BIOTRONIK VDE-DDDRV [id number] Used QP (BULK) 17:15 BIOTRONIK LEAD, PROTEGO S 65/18 * [id number] Used 17:21 BIOTRONIK LEAD, SOLIA 60 53 PRO MRI * [id number] Used DERMABOND, ADHESIVE SKIN [id number] 16:48 CORDIS/PACER * Used GLUE MINI *[id number] TP-1103 16:48 MEDLINE INDUSTRIES SUTURE, STRIP PLUS 1/2" * Used *[id number] 16:48 MEDLINE PACER ALEJANDRO, LIMB * 2530 Used [id number] 16:48 MEDLINE PACER PACK, PACER CUSTOM * Used *[id number] 17:21 [employer] MEDICAL PACER SAFE SHEATH, FR7, 13CM FR 7 [id number] Used 17:20 [employer] MEDICAL PACER SAFE SHEATH, FR8, 13CM FR 8 [id number] Used 17:21 [employer] MEDICAL PACER SAFE SHEATH, FR9, 13CM FR 9 [id number] Used 16:59 Needle Sponge Count 2 22 Used 16:58 Needle Sponge Count 20 200 Used 16:58 Needle Sponge Count 5 5 Used SUTURE, 0 ETHIBOND [CT1] (CX21D), 8pk SUTURE, 2-0 VICRYL [CT1] ([id number]) SUTURE, 2-0 VICRYL [CT1] (NOS476L) [id number] 16:48 [employer] BLANKET,WARM AIR CCL * Used *[id number] 16:55 [employer] LIVEWIRE, QUAD, LRG SWEEP FR 6 [id number] Used [place] PAD, ELECTROSURGICAL 16:48 * [id number] Used SURGICAL GROUNDING ORANGE LEAD, ATTAIN PERFORMA 17:53 VITATRON MEDTRONIC 88CM [id number] Used STRAIGHT, 88CM 16:48 [employer]. ELECTRODE, PRO-PADZ BIPHASIC * [id number] Used Equipment Model, Serial, Lot Number and Expiration Data Description Model Number Serial Number Lot Number Expiration Date DEFIBRILLATOR, ITREVIA 7 HF-T [id number] 12-25-2017 QP (BULK) LEAD, PROTEGO S 65/18 [id number] 12-25-2017 LEAD, ATTAIN PERFORMA 4398 [id number] 05-23-2018 STRAIGHT, 88CM LEAD, SOLIA 60 53 PRO MRI [id number] 03-27-2018 Medication Medication Total Dose (Bolus/Oral) Medication Total Dosage/Unit 2% XYLOCAINE 50 mL Medications (Bolus/Oral) Medication Time Given Dosage/Unit Administered By Reason 2% XYLOCAINE 10/20/2016 5:12:53 PM 50 mL Raeann Espinoza 50 mL 2% XYLOCAINE given by Raeann Espinoza in Left shoulder via Subcutaneous. LEFT UPPER CHEST Chronological Log Time Study Chronological Log 16:48:05 CASE CONTINUES FROM EPS 16:48:30 1GRAM OF VANCOMYCIN WAS GIVEN AND 2GRAMS OF ANCEF IV WAS ALSO GIVEN PRE PACEMAKER BY SUPERVISOR TANK STORAGE. 16:51:54 2% CHLORHEXIDINE GLUCONATE WASH AND NASAL SWIPE DONE PRIOR TO PROCEDURE. 16:52:23 Left arm and shoulder prepped with 2% chlorhexidine, and with a 3 min. waiting time. First Sponge And Instrument Count Done by Graham Mitchell, RT(R). 16:58:01 Hypo's: 5, Sponges: 20, Bovie/scratch: 2 Sutures: 10, Blades: 1, Instruments: 25, Syveck Patches: 0 Time Out. Correct patient, procedure, procedure equipment, site and side verified with physici an present. Time 17:12:50 concurred by MD, individual staff and SUPERVISOR TANK STORAGE. Time Out #2 - Consents verified, patient in correct position, all results are labled and displ ayed, safety precautions 17:12:51 taken, antibiotics administered. Time out concurred by MD, individual staff and SUPERVISOR TANK STORAGE in proced ure 17:12:52 Case Start 17:12:53 50 mL 2% XYLOCAINE given by Raeann Espinoza in Left shoulder via Subcutaneous. LEFT UPPER CH EST 17:14:18 Vascular access was obtained in the Subclav. Vein (Lft. 17:14:24 Vascular access was obtained in the Subclav. Vein (Lft. 17:14:27 Vascular access was obtained in the Subclav. Vein (Lft. 17:16:17 Surgical Incision Made. 17:16:19 A pocket was created at the L Upper Chest. 17:18:01 A SAFE SHEATH, FR8, 13CM FR 8 was advanced into the Subclav. Vein (Lft using the Modified Seldinger technique. 17:20:08 A LEAD, PROTEGO S 65/18 * was inserted and positioned in the RV. 17:20:18 Lead placement verified under fluoroscopy 17:20:19 The RV lead impedance and threshold being tested. 17:23:23 A SAFE SHEATH, FR7, 13CM FR 7 was advanced into the Subclav. Vein (Lft using the Modified Seldinger technique. 17:23:34 A LEAD, SOLIA 60 53 PRO MRI * was inserted and positioned in the RA. 17:23:45 Lead placement verified under fluoroscopy 17:23:49 The Atrial lead impedance and threshold is being tested. 17:33:08 A SAFE SHEATH, FR9, 13CM FR 9 was advanced into the Subclav. Vein (Lft using the Modified Seldinger technique. A LIVEWIRE, QUAD, LRG SWEEP FR 6 was advanced vis Subclav. Vein (Lft and placed in the CS. Jacqueline cement was 17:43:32 visually confirmed under fluoroscopy. 17:53:33 Catheter was removed 17:53:35 A LEAD, ATTAIN PERFORMA STRAIGHT, 88CM 88CM was inserted and positioned in the CS/LV. 17:53:43 The CS/LV lead impedance and threshold is being tested. 17:53:46 Lead placement verified under fluoroscopy 17:58:49 A DEFIBRILLATOR, ITREVIA 7 HF-T QP (BULK) VDE-DDDRV was connected and placed in the pocket . 17:58:53 Pocket flushed with antibiotic solution SECOND Sponge And Instrument Count Done by Graham Mitchell, RT(R). 18:06:06 Hypo's: 5, Sponges: 20, Bovie/scratch: 2 Sutures: 10, Blades: 1, Instruments: 25, Syveck Patches: 0 18:06:18 The pocket was closed. FiNAL Sponge And Instrument Count Done by Graham Mitchell RT(R). 18:08:36 Hypo's: 5, Sponges: 20, Bovie/scratch: 2 Sutures: 10, Blades: 1, Instruments: 25, Syveck Patches: 0 18:08:46 Bedside Report will be given. 18:08:54 Catheter(s) removed without difficulty 18:08:56 Sheath removed; pressure applied to access site. 18:08:58 Sterile dressing applied to site 18:09:00 No case complications noted. 18:10:06 Implant Procedure was performed. 18:10:31 Case End End Study - Radiation Exposure Fluoro Time (minutes) 12.0 End Study - Patient Disposition Complications Transferred To Interventional Outcome No Telemetry Bed successful
--- NOTE | 2016-10-24 15:50 | CATHPROC ---
[employer] HIS Report Study Information Study Number Scheduled Start Study Start [id number] 10/20/2016 Oct 20 2016 3:41PM Referring Institution Admit Source Facility Department 1 Other [facility] Physician and Clinical Staff Initial Raeann Francois Embroidery Specialist Bao Sampson,MINERVA Embroidery Specialist Mateus Wallace,MINERVA Other [place], [place] Other Anesthesia, SOCIAL MEDIA JOB TITLES Recorder Dandre Montes De Oca,RT(R) Scrub Graham MitchellRT(R) Equipment Time Photography Professor Description Size Mfg Part Number Used/Scraped [id number] 15:47 [employer] PACK, CCL CUSTOM * Used *[id number] 15:47 MEDLINE PACER ALEJANDRO, LIMB * 2530 Used [id number] 15:47 MANN MED[employer] BLANKET,WARM AIR CCL * Used *[id number] 15:46 [employer] CATHETER, JSN, QUAD FR 5 Used *[id number] 15:46 [employer] CATHETER, JSN, QUAD FR 5 Used *[id number] 15:46 [employer] CATHETER, JSN, QUAD FR 5 Used *[id number] 15:46 [employer] CATHETER, JSN, QUAD FR 5 Used *[id number] 15:46 [employer] SHEATH, EPS, FR5 FAST CATH FR 5 Used *[id number] 15:47 [employer] SHEATH, EPS, FR5 FAST CATH FR 5 Used *[id number] 15:47 [employer] SHEATH, EPS, FR5 FAST CATH FR 5 Used *[id number] 15:47 [employer] SHEATH, EPS, FR6 FAST CATH FR 6 [id number] Used History: Current Medications Medication Dosage/Unit Route Frequency Last Date/Time Taken LASIX ASA CARVEDILOL LISINOPRIL History: Allergies Allergy Reaction Aspirin RASHES Remicade Anaphylaxis History: Risk Factors Hypertension Dyslipidemia Yes No Prior Valve Prior PCI Prior CABG Surgery No Yes No On Dialysis No History: CV Disease Selection Items Cardiomyopathy ischemic Known CAD History: Stress Tests Stress or Imaging Studies Performed No History: Other Disease Selection Items CAD HTN History: Other Current Smoker No Labs Hgb (g/dl) Hct (%) RBC (MIL/MM3) WBC (l/cumm) Platelets (thousands) 12.00-18.00 37.00-55.00 4.80-6.20 4.80-10.80 140.00-450.00 14.8 44.7 5.2 8.1 218 Glucose (mg/dl) BUN (mg/dl) Creatinine (mg/dl) BUN:Creatinine (1:x) 60.00-110.00 8.00-20.00 0.10-9.00 10.00-20.00 102 21 0.7 30 Na (meq/l) K (meq/l) Cl (meq/l) CO2 (mmol/L) Ca (mg/dl) 138.00-146.00 3.80-5.10 101.00-111.00 23.00-30.00 9.00-10.50 143 3.9 105 30.5 8.9 PT (sec) PTT (sec) INR (PTT:PT) 9.40-11.40 25.10-32.70 0.50-2.00 13 29.6 1.2 CPK-MB (ng/ML) 0.00-7.00 Not Drawn Medication Medication Total Dose (Bolus/Oral) Medication Total Dosage/Unit 1% XYLOCAINE 20 mL Medications (Bolus/Oral) Medication Time Given Dosage/Unit Administered By Reason 1% XYLOCAINE 10/20/2016 4:31:24 PM 20 mL Raeann Espinoza 20 mL 1% XYLOCAINE given in lab by Raeann Espinoza via Subcutaneous. Medication (Drip) Medication Time Given Dosage/Unit Concentration/Unit Diluent (ml) Solution IV Solutions 10/20/2016 3:48:09 PM 0 mL (IV) 500 NaCl .9 IV Solutions given in lab by Anesthesia SOCIAL MEDIA JOB TITLES in Right Hand via Peripheral IV. Pump/Drip Flow = 20 ml /hr using NaCl .9. Initial Case Assessment Cardiovascular HR Rhythm Chest Pain 87 Irregular 0 Edema Present Skin color Skin None Normal Warm Dry Neurological State Oriented to time-place- Alert Moves all extremities person Respiration - General SpO2 (%) O2 (lpm) 98 0 Chronological Log Time Study Chronological Log 15:41:23 Patient arrived via Bed. 15:41:25 Patient Name, D.O.B, / Armband Verified By R.N. 15:41:29 Consent signed by the physician and the patient and verified by the [employer] [facility] staff. 15:41:36 Patient has been NPO for More than 6Hrs. 15:44:19 Skin Breakdown- none per patient. 15:47:31 Patient Warmer Placed on the Table. 15:47:33 Xiao Prominences Protected 15:47:36 A # 20 IV was noted in the Hand (right). Grade = 0 IV Solutions given in lab by Anesthesia, SOCIAL MEDIA JOB TITLES in Right Hand via Peripheral IV. Pump/Drip Flow = 20 ml/hr using NaCl 15:48:09 .9. 15:48:13 History and physical on the chart or being dictated. Assessment: Initial Case, HR=87 BPM, Rhythm=Irregular, Chest Pain=0, Edema=None, Color=Normal, Skin = Warm, Dry 15:48:17 Neurological: State=Alert, Ox3, BEYER Respiration: SpO2=98 %, O2=0 lpm 15:50:33 A # 20 IV was noted in the Forearm (left). Grade = 0 15:57:02 Right groin prepped with 2% chlorhexidine, and with a 3 min. waiting time. 15:57:05 Right Upper Chest Prepped Times Two. 16:00:00 Anesthesia at bedside. Assumes care of patient. see anesthesia flow sheet for all medicatio ns and vital signs in case 16:07:50 Reference ECG taken 16:08:01 MD paged Time Out. Correct patient, procedure, procedure equipment, site and side verified with physicia n present. Time 16:30:24 concurred by MD, individual staff and SOCIAL MEDIA JOB TITLES. Time Out #2 - Consents verified, patient in correct position, all results are labled and displa yed, safety precautions 16:30:26 taken, antibiotics administered. Time out concurred by MD, individual staff and SOCIAL MEDIA JOB TITLES in procedu re 16:30:28 Case Start 16:31:24 20 mL 1% XYLOCAINE given in lab by Raeann Espinoza via Subcutaneous. 16:35:35 A SHEATH, EPS, FR5 FAST CATH FR 5 was advanced into the Fem Vein (right) using the Modified Seldinger technique. 16:35:43 A SHEATH, EPS, FR5 FAST CATH FR 5 was advanced into the Fem Vein (right) using the Modified Seldinger technique. 16:35:46 A SHEATH, EPS, FR5 FAST CATH FR 5 was advanced into the Fem Vein (right) using the Modified Seldinger technique. 16:35:47 A SHEATH, EPS, FR6 FAST CATH FR 6 was advanced into the Fem Vein (right) using the Modified Seldinger technique. A CATHETER, JSN, QUAD FR 5 was advanced vis Fem Vein (right) and placed in the CS. Placement wa s visually 16:35:58 confirmed under fluoroscopy. A CATHETER, JSN, QUAD FR 5 was advanced vis Fem Vein (right) and placed in the RVA. Placement w as visually 16:37:04 confirmed under fluoroscopy. A CATHETER, JSN, QUAD FR 5 was advanced vis Fem Vein (right) and placed in the HIS. Placement w as visually 16:37:08 confirmed under fluoroscopy. A CATHETER, JSN, QUAD FR 5 was advanced vis Fem Vein (right) and placed in the HRA. Placement w as visually 16:37:11 confirmed under fluoroscopy. 16:38:57 EPS IN PROGRESS 16:42:03 EPS DONE 16:42:31 EP Procedure was performed. 16:46:22 EPS IS FINISHED. CASE TRANISITIONING TO BIVICD IMPLANT. End Study - Contrast Media Used In Study Contrast Total Opened (mL) Total Used (mL) Total Wasted (mL) Unspecified 0 0 0 End Study - Maximum Contrast Load Max Contrast Load (mL) 1042.9 End Study - Radiation Exposure Fluoro Time (minutes) 2.2 End Study - Patient Disposition Complications Transferred To No Telemetry Bed
--- NOTE | 2016-11-15 20:24 | MD ---
cc: CELIA CREWS M.D. ADMISSION DATE: 10/17/2016 DISCHARGE DATE: 10/21/2016 BRIEF HISTORY Mr. Humphreys is a 66-year-old gentleman with severe congestive heart failure, cardiomyopathy with ejection fraction around 25%, on multiple medical treatment. Congestive heart failure Class III-IV. Can barely tolerate to have a flat bed. On optimal medical treatment. Was admitted on October 17, 2016 for heart failure management and milrinone infusion. During hospitalization the patient was transferred to the Critical Care Unit. A [place]-David was inserted by Dr. Poe. Milrinone was initiated as well as diuretic. The patient's condition significantly improved. On the 20 of October, electrophysiologic study was performed as well as biventricular pacer defibrillator was inserted. The procedure was successful. The patient's medication was optimized. He was discharged home on the . On discharge home, a heart healthy diet was recommended. The patient was on the following medications. 1. Coreg 2.125 mg twice a day. 2. Entresto. 3. Lasix 60 mg twice a day. 4. Entresto was discontinued and the patient was put on lisinopril 5. Metformin. 6. Fenofibrate. 7. Lipitor. 8. Magnesium. On discharge home - GENERAL: He was alert, fully oriented. VITAL SIGNS: Blood pressure was 104/64, pulse 89, respiratory rate 18. LUNGS: Ventilated. CARDIOVASCULAR: S1, S2 regular. ABDOMEN: Obese. No mass. EXTREMITIES: No edema. Electrocardiogram showed AV synchronized pacing. Mr. Humphreys is stable. He is going to be discharged home. Instructions were provided. I will follow the gentleman at the office in two weeks for heart failure management and device evaluation. MD BRIGETTE Paz/LUCILA /7:57 PM /8:04 PM
== END 2016-10-21 11:28 | disposition home or self-care (01) | DRG 227 ==
LOC: HCVR 10-17 09:15 → OBSVTOIN 10-17 09:15 → HCIS 10-20 18:35
PROVIDERS: ADMIT Internal Medicine Interventional Cardiology; ATTEND Internal Medicine Interventional Cardiology
PROC: 05HM33Z Insertion of Infusion Device into Right Internal Jugular Vein, Percutaneous Approach (ICD-10-PCS; 2016-10-17)
PROC: 02HK3KZ Insertion of Defibrillator Lead into Right Ventricle, Percutaneous Approach (ICD-10-PCS; 2016-10-20)
PROC: 02H63KZ Insertion of Defibrillator Lead into Right Atrium, Percutaneous Approach (ICD-10-PCS; 2016-10-20)
PROC: 03HY32Z Insertion of Monitoring Device into Upper Artery, Percutaneous Approach (ICD-10-PCS; 2016-10-20)
PROC: 4A0234Z Measurement of Cardiac Electrical Activity, Percutaneous Approach (ICD-10-PCS; 2016-10-20)
PROC: 0JH608Z Insertion of Defibrillator Generator into Chest Subcutaneous Tissue and Fascia, Open Approach (ICD-10-PCS; principal; 2016-10-20 17:30)
DX: I11.0 Hypertensive heart disease with heart failure (principal); I50.23 Acute on chronic systolic (congestive) heart failure; Z99.81 Dependence on supplemental oxygen; I25.5 Ischemic cardiomyopathy; I08.1 Rheumatic disorders of both mitral and tricuspid valves; I25.10 Atherosclerotic heart disease of native coronary artery without angina pectoris; Z79.82 Long term (current) use of aspirin; S81.801D Unspecified open wound, right lower leg, subsequent encounter; X58.XXXD Exposure to other specified factors, subsequent encounter; E78.5 Hyperlipidemia, unspecified; E11.9 Type 2 diabetes mellitus without complications
CPT/HCPCS: 33225; 33249; 36556; 71010; 76937; 80048; 80053; 83735; 85025; 85610; 85730; 93005; 93620; 99285; C1730; C1769; C1882; C1895; C1898; C1900; J0690; J1120; J1940; J2250; J2260; J3010; J3370; J3475; J3480